=== PATIENT | female | born 1980 | race Two or more races ===

== ENCOUNTER 2021-07-24 12:21 | Emergency (ER) | payer OTHER, SELFPAY ==
[2021-07-24 12:51] VITALS: BP 140/78; PULSE 70; RESP 18; TEMP 36.6; O2SAT 99; BMI 39.4
--- NOTE | 2021-07-24 15:01 | ED.WOUNDLAC ---
HPI - Wound/Laceration General Chief Complaint: Wound/Laceration Stated Complaint: tattoo infection on arm Time Seen by Provider: 07/24/21 15:01 Source: patient Mode of arrival: ambulatory Limitations: no limitations History of Present Illness HPI narrative: 41 y/o female presents with left forearm pain, redness and swelling that started yesterday. She got a tattoo on her entire extensor surface of her left forearm 3 days ago. She reports yesterday having worsening pain with new redness surrounding some of the tattooing. She pain is burning in nature and she has some associated swelling of the skin of the tattoo. She denied fever or chills. She is not diabetic. Onset (ago): day(s) Extremity Location: left: forearm Context: other (new tattoo) Associated symptoms: pain and other (swelling, redness) Related Data Previous Rx's Medication Instructions Recorded cephalexin 500 mg capsule 500 mg PO Q6H 7 Days #28 cap 07/24/21 doxycycline hyclate 100 mg tablet 100 mg PO BID #14 tab 07/24/21 Allergies Allergy/AdvReac Type Severity Reaction Status Date / Time No Known Allergies Allergy Verified 07/24/21 14:49 Review of Systems Review of Systems: Constitutional: No Fever, No Chills s Cardiovascular: No Chest Pain, No SOB Gastrointestinal: No Nausea, No Vomiting Musculoskeletal: No joint pain, No Myalgias Skin: + Skin Lesions, No rash Neuro: No Weakness, No Numbness Psych: + Anxiety/Panic, No Depression Heme/Lymph: No Bruising, No Lymphadenopathy PMFSH Social History Social History Advance Directives: No Advance Directives Information Provided: No Physical Exam Vital Signs: Vital Signs: Last Vital Signs Temp 98.3 F 07/24/21 15:38 Pulse 62 07/24/21 15:38 Resp 16 07/24/21 15:38 BP 135/76 07/24/21 15:38 Pulse Ox 100 07/24/21 15:38 BMI result Body Mass Index 39.4 Appearance: Alert. Oriented X3. No acute distress. HEENT: normal inspection CVS: Normal heart rate and rhythm. Pulses normal. Respiratory: No respiratory distress. Skin: Skin warm and dry. Normal skin color. Normal skin turgor. No rashes. Extremities: dorsal aspect of the left forearm with large new tattoo - black ingram with a central eye. there is erythema, warmth, swelling and tenderness of the entire tattooed area, compartments are soft and compressible with 2+ radial pulse. no weeping or drainage from the tattooed area. Neuro: Oriented X 3. No motor deficit. No sensory deficit. Course Course Course Narrative: 41 y/o female presenting with left forearm pain, redness and swelling 3 days s/p recent tattoo. Concern for Staph infection, possible MRSA. As of right now her symptoms and exam her mild - will start will coverage antibiotics with doxycycline and Keflex. Bacitracin and a sterile dressing was applied. She is encourage follow-up with her primary care doctor next week for close follow-up. We discussed importance of outpatient follow-up and monitoring for worsening infection. Stable for discharge home. Critical Care Time Critical Care Time Critical Care Time: No Discharge Plan Discharge Clinical Impression: Cellulitis Patient Disposition: Home, Self-Care Instructions: Cellulitis (DC) Additional Instructions: Take the prescribed antibiotics as directed - complete the entire course. Use topical bacitracin to the area 2 times per day. Keep clean and covered. Stay out of the sun Follow up with your doctor next week. If you develop new or worsening symptoms call 911 or come back to the ER for further evaluation. Prescriptions: New doxycycline hyclate 100 mg tablet 100 mg PO BID Qty: 14 0RF cephalexin 500 mg capsule 500 mg PO Q6H 7 Days Qty: 28 0RF Interventions: ED Discharge Assessment Last Done: 07/24/21 15:41 Discharge Date/Time: 07/24/21 15:41 Print Language: Hungarian
[2021-07-24 15:38] VITALS: BP 135/76; PULSE 62; RESP 16; TEMP 36.8; O2SAT 100
== END 2021-07-24 15:41 | disposition home or self-care (01) ==
PROVIDERS: Emergency Provider Emergency Medicine
DX: L03.114 Cellulitis of left upper limb (principal)
CPT/HCPCS: 99283